=== PATIENT | female | born 1995 | race Caucasian/White ===

== ENCOUNTER 2024-02-18 09:13 | Emergency (ER) | payer BC | END 2024-02-18 10:25 | disposition home or self-care (01) | LOC: MW.ED 09:13 | DX: L08.9 Local infection of the skin and subcutaneous tissue, unspecified (principal); F17.210 Nicotine dependence, cigarettes, uncomplicated; Z75.8 Other problems related to medical facilities and other health care; Z86.19 Personal history of other infectious and parasitic diseases | CPT/HCPCS: 99283 ==

== ENCOUNTER 2024-08-15 14:10 | Emergency (ER) | payer BC, MEDICAID | END 2024-08-15 14:34 | disposition home or self-care (01) | LOC: MW.ED 14:10 | DX: K04.7 Periapical abscess without sinus (principal); K02.9 Dental caries, unspecified; K00.7 Teething syndrome; Z75.8 Other problems related to medical facilities and other health care | CPT/HCPCS: 99283 ==

== ENCOUNTER 2024-10-27 04:47 | Inpatient (IN) | payer MEDICAID ==
[2024-10-27] MEDS ORDERED: Lidocaine 1% 50 ML MDV INJECT PRN (04:51)
[2024-10-27] MEDS ORDERED: Water For Irrigation,Sterile 1,000 ML Container IRR PRN (04:51)
[2024-10-27] MEDS ORDERED: Carboprost Tromethamine 250 MCG/1 mL Vial IM PRN (04:51)
[2024-10-27] MEDS ORDERED: Sodium Chloride 0.9% 10 ML Syringe FLUSH PRN (04:51)
[2024-10-27] MEDS ORDERED: Sodium Chloride 0.9% 20 ML SDV IV PRN (04:51)
[2024-10-27] MEDS ORDERED: Misoprostol 200 MCG Tab PO PRN (04:51)
[2024-10-27] MEDS ORDERED: Terbutaline 1 MG/ML SDV SUBCUT PRN (04:51)
[2024-10-27] MEDS ORDERED: Sodium Chloride 0.9% 2.5 ML Syringe FLUSH PRN (04:51)
[2024-10-27] MEDS ORDERED: Butorphanol 2 MG/ML SDV IVPUSH PRN (04:51)
[2024-10-27] MEDS ORDERED: Tranexamic Acid in NACL,ISO-OS 1,000 MG in Premix Bag 1 BAG IV PRN (04:51)
[2024-10-27] MEDS ORDERED: Methylergonovine 0.2 MG/1 ML Amp IM PRN (04:51)
[2024-10-27] MEDS ORDERED: Oxytocin/0.9 % Sodium Chloride 30 UNIT/500 ML BAG IV SCH (05:00)
[2024-10-27] MEDS: Ampicillin 2 GM in Sodium Chloride 0.9% 100 ML IV ONE (05:10)
[2024-10-27] MEDS: Lactated Ringers 1,000 ML IV SCH (05:11)
[2024-10-27 05:56] LABS: HEMATOCRIT 37.9 % (37.0-47.0); HEMOGLOBIN 12.9 g/dL (12.0-16.0); MEAN CORPUSCULAR HEMOGLOBIN 28.9 pg (28.0-32.0); PLATELET COUNT,PLT 165 K/uL (150-400); RED BLOOD CELL COUNT 4.46 M/uL (4.10-5.30); WHITE BLOOD CELL COUNT,WBC 9.64 K/uL (3.9-11.3)
[2024-10-27] MEDS: Oxytocin/0.9 % Sodium Chloride 30 UNIT/500 ML BAG IV SCH (06:00)
[2024-10-27] MEDS ORDERED: dexmedeTOMIDine HCl 200 MCG/2 ML SDV EPIDUR SCH (06:45)
[2024-10-27] MEDS: Ampicillin 1 GM in Sodium Chloride 0.9% 50 ML IV SCH (09:28)
[2024-10-27] MEDS: Ropivacaine HCl/PF 400 MG in Premix Bag 1 BAG EPIDUR SCH (11:46)
[2024-10-27] MEDS: Phenylephrine HCl In 0.9% NaCl 1 MG/10 ML Syringe IVPUSH PRN (11:47)
[2024-10-27] MEDS: Ondansetron 4 MG/2 ML SDV IVPUSH PRN (12:04)
[2024-10-27] MEDS: ePHEDrine 50 MG/ML SDV IVPUSH PRN (12:36)
[2024-10-27] MEDS ORDERED: oxyCODONE 5 MG Tab PO PRN (18:09)
[2024-10-27] MEDS ORDERED: Hydrocortisone 2.5% Crm 30 GM Tube TOP PRN (18:09)
[2024-10-27] MEDS ORDERED: Lanolin 100% Cream 7 GM Tube TOP PRN (18:09)
[2024-10-27] MEDS ORDERED: Docusate Sodium 100 MG Cap PO PRN (18:09)
[2024-10-27 19:03] LABS: PH,UMBILICAL ARTERIAL 7.225 (7.18-7.38); PH,UMBILICAL VENOUS 7.315 (7.25-7.45)
[2024-10-28] MEDS: Ibuprofen 800 MG Tab PO PRN (00:03)
[2024-10-28] MEDS: Benzocaine/Menthol 20%-0.5% Spray 78 GM Cannister TOP PRN (01:20)
[2024-10-28] MEDS: Witch Hazel Medicated Pads 40/Jar TOP PRN (01:20)
[2024-10-28] MEDS: Acetaminophen 500 MG Tab PO PRN (03:52)
[2024-10-28 06:51] LABS: HEMATOCRIT 34.2 % (37.0-47.0); HEMOGLOBIN 11.8 g/dL (12.0-16.0)
[2024-10-28] MEDS: Measles, Mumps & Rubella Vaccine 0.5 ML SDV SUBCUT ONE (21:26)
[2024-10-29] MEDS ORDERED: Sulfamethoxazole/Trimethoprim 800-160 MG Tab PO SCH (09:00)
[2024-10-29] MEDS ORDERED: Mupirocin Oint 22 GM Tube TOP SCH (14:00)
== END 2024-10-28 22:45 | disposition home or self-care (01) | DRG 807 ==
LOC: MW.OB 04:47 → OBSVTOIN 17:56 → MW.OB 17:56
PROVIDERS: ADMIT Obstetrics & Gynecology; ATTEND Obstetrics & Gynecology
PROC: 10E0XZZ Delivery of Products of Conception, External Approach (ICD-10-PCS; principal; 2024-10-27)
PROC: 3E033VJ Introduction of Other Hormone into Peripheral Vein, Percutaneous Approach (ICD-10-PCS; 2024-10-27)
DX: O98.82 Other maternal infectious and parasitic diseases complicating childbirth (principal); Z37.0 Single live birth; B95.1 Streptococcus, group B, as the cause of diseases classified elsewhere; Z3A.39 39 weeks gestation of pregnancy
CPT/HCPCS: 36415; 51702; 59025; 59409; 82803; 85014; 85018; 85027; 86592; 86850; 86900; 86901; 87070; 87077; 87081; 87186; 87205; 90707; A9270-GY; G0008; J0290; J2371; J2405; J2590; J2795; J3490; J7120

== ENCOUNTER 2024-12-26 19:41 | Emergency (ER) | payer MEDICAID ==
[2024-12-26] MEDS: Acetaminophen 325 MG Tab PO ONE (21:07)
== END 2024-12-26 21:11 | disposition home or self-care (01) ==
LOC: MW.ED 19:41
DX: K02.9 Dental caries, unspecified (principal); Z79.899 Other long term (current) drug therapy
CPT/HCPCS: 99283; A9270; 99282